=== PATIENT | male | born 1945 | race Caucasian/White ===

== ENCOUNTER → 2017-11-21 | Outpatient (CLI) | payer OTHER ==
[~2017-11-21] MED LIST: ASA81 MG PO; IOPAMIDOL 370 MG/ML 200 ML INFUS..BTL INJ ONE; SODIUM CHLORIDE 0.9% 50ML 50 ML ONE; Z.0.AMLODIPINE BESYL PO; Z.0.GABAPENTIN300 MG PO; Z.0.NORCO 5-325 TA1 PO; Z.0.PLAVIX75 MG PO
[2017-11-21 13:00] LABS: BLOOD UREA NITROGEN 16 mg/dL (7-26); BUN/CREATININE RATIO 19 (6-25); CREATININE, SERUM 0.83 mg/dL (0.72-1.25); EST GLOMERULAR FILTRATION RATE > 60 ML/MIN (60-)
--- NOTE | 2017-11-21 15:01 | Diagnostic Imaging Report ---
PROCEDURE:CTA ABD/PEL/BILATERAL LOWER EXT RUNOFF COMPARISON:None. INDICATIONS:PERIPHERAL ARTERY DISEASE TECHNIQUE: Multi-detector CT technology with Dose Reduction was employed. Images were obtained after the administration of 100 cc Isovue 370 intravenously. For optimization of anatomic evaluation, multiplanar and volume rendering reconstructions were performed. Advanced 3-D off-line postprocessing were performed on a dedicated stand-alone workstation under the direct supervision of the interpreting physician. DLP: 610.40 mGy-cm FINDINGS: The abdominal aorta is non-aneurysmal, measuring 3 cm in maximum transverse dimension at the renal segment. There is advanced calcified and noncalcified atherosclerotic plaque along the course of the abdominal aorta. At least moderate right renal artery origin stenosis is suspected. Mild celiac and SMA origin stenoses are also suspected. The DAYNA distribution fills via collateralization from the SMA branches. The red cliff bilateral common and external iliac arteries are completely occluded. Collateral perfusion of the internal iliac distributions via lumbar collaterals. Postsurgical changes of an aortobifemoral bypass graft. The right-sided iliac limb is completely occluded. The left-sided graft limb is patent, though there is a large partially thrombosed pseudoaneurysm at the distal anastomosis. Right lower extremity: Status post above knee amputation. Occluded partially visualized right common femoral-distal bypass graft. Left lower extremity: Anastomotic pseudoaneurysm of the aortobifemoral bypass graft distal anastomosis. Extensive postsurgical changes of the left inguinal region with 2 abandoned sympathetic femoral-popliteal grafts, which are completely occluded. A third femoral-popliteal graft is patent with noncalcified atherosclerotic plaque along its course. A metallic stent traverses the distal aspect of the graft, traverses the adductor hiatus, and it joins the red cliff popliteal artery at the level of the intercondylar notch of the femur. The popliteal artery is otherwise patent. Runoff: Suboptimally evaluated secondary to contrast bolus timing. The anterior tibial artery is patent proximally. None of the runoff vessels are visualized at the ankle joint or foot. Abdominal and Pelvic soft-tissues and organs: Lung bases: Subsegmental atelectasis in the dependent lower lobes. Liver: No focal hepatic lesion or intrahepatic biliary ductal dilatation. The gallbladder is normal. Biliary: No biliary dilatation. Spleen: No splenomegaly. Pancreas: No focal mass or ductal dilatation. Adrenal Glands: No nodules. Kidneys: No focal mass, hydronephrosis, or calculus. Subcentimeter hypoattenuating lesion projects from the right kidney too small to further characterize but likely represent small cysts. GI: Large bowel shows no evidence of distention or wall thickening. Gas and fecal material are noted throughout. The appendix is not identified. Prominence of the gastric rugal folds related to underdistention. No small bowel dilatation to suggest obstruction. Peritoneum/Retroperitoneum: No free air or free fluid. Reproductive organs: Bladder and prostate are unremarkable. Musculoskeletal: Muscular atrophy and osteopenia of the proximal right lower extremity. No osseous destructive lesions. Multilevel degenerative disc changes of the lumbar spine. CONCLUSION: Borderline aneurysmal abdominal aorta (3 cm) with extensive calcified and noncalcified atherosclerotic plaque resulting in at least moderate right renal ostial stenosis. Mild foci of additional visceral branch stenosis as described above. Postsurgical changes of aortobifemoral bypass graft with occlusion of the right iliofemoral limb status post right above-knee amputation. Large (6 cm) mostly thrombosed pseudoaneurysm at the distal left iliofemoral limb anastomosis. Extensive postsurgical changes of the left lower extremity including 2 abandoned femoral-popliteal bypass grafts, and a third graft and endovascular stent combination conduit, patent to its anastomosis with the popliteal artery at the level of the knee joint. Poor visualization of the runoff vessels likely secondary to contrast bolus timing and atherosclerotic disease. 2.4 cm probable postsurgical seroma along the distal aspect of the patent femoral-popliteal graft. Dictated by: Tyler Glynn M.D. on 11/21/2017 at 15:04 Electronically approved by: Tyler Glynn M.D. on 11/21/2017 at 15:04
== END ==
LOC: CT 11:35
PROVIDERS: ATTEND Thoracic Surgery (Cardiothoracic Vascular Surgery)
DX: I73.9 Peripheral vascular disease, unspecified (principal)
CPT/HCPCS: 36415; 75635; 82565; 84520; Q9967

== ENCOUNTER 2018-07-12 21:31 | Inpatient (IN) | payer MEDICARE, OTHER ==
[~2018-07-12] VITALS: Ht 170.2 cm; Wt 55.8 kg
[~2018-07-12 21:31] MED LIST changes: -IOPAMIDOL 370 MG/ML 200 ML INFUS..BTL INJ ONE; -SODIUM CHLORIDE 0.9% 50ML 50 ML ONE
--- OUTSIDE RECORDS SUMMARY | 2018-07-12 21:34 | XMS REPORT ---
Author Author [facility], [place] Address Unknown Phone Unavailable Care Team Providers Care Carrier Driver Name Role Phone DAVID DOWNING Unavailable Unavailable Problems This patient has no known problems. Allergies, Adverse Reactions, Alerts This patient has no known allergies or adverse reactions. Medications This patient has no known medications. Results Test Description Test Time Test Comments Text Results Atomic Results Result Comments CTA ABD/PEL/RUN OFF 2017-11-21 15:04:00 [place] [address] Patient Name: FREDERICK RAIN MR #: [id number] : 1945 Age/Sex: 72/M Req #: [id number] Adm Physician: Ordered by: DAVID DOWNING MD Report #: [id number] Location: CT Room/Bed: Procedure: CT/CTA ABD/PEL/RUN OFF Exam Date: 11/21/17 Exam Time: 1320 REPORT STATUS: Signed PROCEDURE: CTA ABD/PEL/BILATERAL LOWER EXT RUNOFF COMPARISON: None. INDICATIONS: PERIPHERAL ARTERY DISEASE TECHNIQUE: Multi-detector CT technology with Dose Reduction was employed. Images were obtained after the administration of 100 cc Isovue 370 intravenously. For optimization of anatomic evaluation, multiplanar and volume rendering reconstructions were performed. Advanced 3-D off-line postprocessing were performed on a dedicated stand-alone workstation under the direct supervision of the interpreting physician. DLP: 610.40 mGy-cm FINDINGS: The abdominal aorta is non- aneurysmal, measuring 3 cm in maximum transverse dimension at the renal segment. There is advanced calcified and noncalcified atherosclerotic plaque along the course of the abdominal aorta. At least moderate right renal artery origin stenosis is suspected. Mild celiac and SMA origin stenoses are also suspected. The DAYNA distribution fills via collateralization from the SMA branches. The telida bilateral common and external iliac arteries are completely occluded. Collateral perfusion of the internal iliac distributions via lumbar collaterals. Postsurgical changes of an aortobifemoral bypas s graft. The right-sided iliac limb is completely occluded. The left-sided graft limb is patent, though there is a large partially thrombosed pseudoaneurysm at the distal anastomosis. Right lower extremity: Status post above knee amputation. Occluded partially visualized right common femoral-distal bypass graft. Left lower extremity: Anastomotic pseudoaneurysm of the aortobifemoral bypass graft distal anastomosis. Extensive postsurgical changes of the left inguinal region with 2 abandoned sympathetic femoral-popliteal grafts, which are completely occluded. A third femoral-popliteal graft is patent with noncalcified atherosclerotic plaque along its course. A metallic stent traverses the distal aspect of the graft, traverses the adductor hiatus, and it joins the telida popliteal artery at the level of the intercondylar notch of the femur. The popliteal artery is otherwise patent. Runoff: Suboptimally evaluated secondary to contrast bolus timing. The anterior tibial artery is patent proximally. None of the runoff vessels are visualized at the ankle joint or foot. Abdominal and Pelvic soft-tissues and organs: Lung bases: Subsegmental atelectasis in the dependent lower lobes. Liver: No focal hepatic lesion or intrahepatic biliary ductal dilatation. The gallbladder is normal. Biliary: No biliary dilatation. Spleen: No splenomegaly. Pancreas: No focal mass or ductal dilatation. Adrenal Glands: No nodules. Kidneys: No focal mass, hydronephrosis, or calculus. Subcentimeter hypoattenuating lesion projects from the right kidney too small to further characterize but likely represent small cysts. GI: Large bowel shows no evidence of distention or wall thickening. Gas and fecal material are noted throughout. The appendix is not identified. Prominence of the gastric rugal folds related to underdistention. No small bowel dilatation to suggest obstruction. Peritoneum/Retroperitoneum: No free air or free fluid. Reproductive organs: Bladder and prostate are unremarkable. Musculoskeletal: Muscular atrophy and osteopenia of the proximal right lower extremity. No osseous destructive lesions. Multilevel degenerative disc changes of the lumbar spine. CONCLUSION: Borderline aneurysmal abdominal aorta (3 cm) with extensive calcified and noncalcified atherosclerotic plaque resulting in at least moderate right renal ostial stenosis. Mild foci of additional visceral branch stenosis as described above. Postsurgical changes of aortobifemoral bypass graft with occlusion of the right iliofemoral limb status post right above-knee amputation. Large (6 cm) mostly thrombosed pseudoaneurysm at the distal left iliofemoral limb anastomosis. Extensive postsurgical changes of the left lower extremity including 2 abandoned femoral-popliteal bypass grafts, and a third graft and endovascular stent combination conduit, patent to its anastomosis with the popliteal artery at the level of the knee joint. Poor visualization of the runoff vessels likely secondary to contrast bolus timing and atherosclerotic disease. 2.4 cm probable postsurgical seroma along the distal aspect of the patent femoral-popliteal graft. Dictated by: Marnie Coates M.D. on 11/21/2017 at 15:04 Electronically approved by: Marnie Coates M.D. on 11/21/2017 at 15:04 Dictated By: MARNIE COATES MD 1500 Transcribed By: RAMSEY on 11/21/17 1506 COPY TO: DAVID DOWNING MD
[2018-07-12 23:24] LABS: ALANINE AMINOTRANSFERASE 10 IU/L (0-55); ALBUMIN 3.7 g/dL (3.5-5.0); ALBUMIN/GLOBULIN RATIO 1.6 (0.8-2.0); ALKALINE PHOSPHATASE 75 IU/L (40-150); ANION GAP 13.1 mmol/L (8-16); BLOOD UREA NITROGEN 23 mg/dL (7-26); BUN/CREATININE RATIO 24 (6-25); CALCIUM 8.5 mg/dL (8.4-10.2); CARBON DIOXIDE 23 mmol/L (22-29); CHLORIDE 109 mmol/L (98-107); CREATININE, SERUM 0.95 mg/dL (0.72-1.25); EST GLOMERULAR FILTRATION RATE > 60 ML/MIN (60-); GLUCOSE 102 mg/dL (74-118); POTASSIUM 4.1 mmol/L (3.5-5.1); SODIUM 141 mmol/L (136-145)
[2018-07-12] MEDS ORDERED: SODIUM CHLORIDE 0.9% 50ML 50 ML ONE (23:31)
[2018-07-12] MEDS ORDERED: IOPAMIDOL 370 MG/ML 200 ML INFUS..BTL INJ ONE (23:31)
[2018-07-12 23:42] LABS: BASOPHILS # (AUTO) 0.1 (0.0-0.1); BASOPHILS % 0.8 % (0.0-1.0); EOSINOPHILS # (AUTO) 0.7 (0.0-0.4); EOSINOPHILS % 9.1 % (0.0-6.0); HEMATOCRIT 42.1 % (38.2-49.6); HEMOGLOBIN 13.9 g/dL (14.0-18.0); LYMPHOCYTES # (AUTO) 2.3 (1.0-3.2); LYMPHOCYTES % 28.8 % (18.0-39.1); MEAN CORPUSCULAR HEMOGLOBIN 31.9 pg (28-32); MEAN CORPUSCULAR VOLUME 96.6 fL (81-99); MONOCYTES % 12.4 % (4.4-11.3); NEUTROPHILS # (AUTO) 3.9 (2.1-6.9); NEUTROPHILS % 48.6 % (38.7-80.0); PLATELET COUNT 239 x10e3/uL (140-360); RED BLOOD COUNT 4.36 x10e6/uL (4.3-5.7); RED CELL DISTRIBUTION WIDTH 12.5 % (11.7-14.4)
[2018-07-13] VITALS (7 sets, daily range): BP systolic 127–162; BP diastolic 59–94
--- NOTE | 2018-07-13 00:26 | Diagnostic Imaging Report ---
History: Bleeding mass in the floor of the mouth. Comparison studies: None Technique: Axial, coronal and sagittal images from the skull base to the thoracic inlet. Coronal and sagittal images reconstructed from the axial data. Dose modulation, iterative reconstruction, and/or weight based adjustment of the mA/kV was utilized to reduce the radiation dose to as low as reasonably achievable. Intravenous contrast: 100 cc of Isovue 370. Findings: Soft tissues: Ill-defined, heterogeneous centrally hypodense and peripheral thin hyperdense lesion in posterior lateral aspect right oral tongue that approximately measures 1.2 x 0.5 0.6 cm (best seen in image 25, series 600). Mild ulceration along the right glossopharyngeal sulcus. Lymph nodes: Mildly enlarged nonnecrotic, noncalcified right level 1B lymph node measures 1.4 cm in long axis. Vessels: Atherosclerotic calcification in bilateral carotid siphon and carotid bulb. Multifocal hard atherosclerotic plaque in bilateral vertebral arteries. Arteries and veins are patent. Glands (thyroid, parotid and submandibular): Normal in size and symmetric. No masses. Orbits: No abnormalities. Paranasal sinuses: Mild mucosal thickening in right maxillary sinus. Temporal bones: No abnormalities. Skull base and facial bones: Intact. Cervical spine: C3-C4: Mild left foraminal stenosis due to uncovertebral arthrosis. C4-C5: 2 mm grade 1 anterolisthesis. Severe right foraminal stenosis due to facet and uncovertebral arthrosis. C5-C6: 2 mm grade 1 retrolisthesis. Severe degenerative disc disease. Mild left foraminal stenosis due to facet and uncovertebral arthrosis. Incidental finding: Airspace opacities in right lung apex may represent scar. IMPRESSION: 1. Ill-defined, heterogeneous predominantly hypodense soft tissue lesion in posterior and lateral aspect of right oral tongue with mild ulceration of right glossopharyngeal sulcus, raises concern for soft tissue neoplasm like squamous cell carcinoma in appropriate clinical setting. Recommendation: ENT consultation and possible tissue sampling for further assessment. 2. Mildly enlarged right level 1B lymph node is either reactive or metastatic in appropriate clinical setting. Signed by: Dr. Shanice Mackey M.D. on 07/13/2018 12:22 AM
--- NOTE | 2018-07-13 01:51 | NUR ---
PT ARRIVING TO UNIT VIA STRETCHER, NO DISTRESS NOTED, URINAL GIVEN FOR VOID, AT BEDSIDE, DENIES NEEDS, INSTRUCTED TO CALL WITH NEEDS
[2018-07-13] MEDS ORDERED: GABAPENTIN400 MG PO (02:01)
[2018-07-13] MEDS ORDERED: ATORVASTATIN CA10 MG PO (02:01)
[2018-07-13] MEDS ORDERED: LOSARTAN POTASS25 MG PO (02:01)
[2018-07-13] MEDS ORDERED: GABAPENTIN 400 MG CAP PO PRN (08:45)
[2018-07-13 09:23] LABS: INR 0.88; PROTHROMBIN TIME 12.8 seconds (11.9-14.5)
[2018-07-13 09:24] LABS: PARTIAL THROMBOPLASTIN TIME 30.3 seconds (23.8-35.5)
[2018-07-13] MEDS: AMLODIPINE BESYLATE 5 MG TAB PO SCH (10:29)
[2018-07-13] MEDS ORDERED: CLINDAMYCIN 300MG 50 ML IV SCH (12:00)
[2018-07-13] MEDS: HYDROCODONE/APAP 5MG-325MG TAB PO PRN ×2 (12:05→17:51)
--- NOTE | 2018-07-13 12:09 | NUR ---
pt dc his own iv (states he no longer want it ) iv antibiotic due at this time. attempt 2 to restart iv failed. called md quiroz to possibly change to po. md santa order
--- NOTE | 2018-07-13 12:48 | NUR ---
New IV started to the right forearm. 20G started.
[2018-07-13] MEDS: CLINDAMYCIN HCL 150 MG CAP PO SCH ×2 (17:02→23:10)
--- NOTE | 2018-07-13 19:45 | NUR ---
PT IS RESTING IN BED. NO RESPIRATORY DISTRESS NOTED. BED IN THE LOWEST POSITION, LOCKED, AND CALL LIGHT WITHIN REACH. WILL CONTINUE TO MONITOR.
[2018-07-13] MEDS ORDERED: ATORVASTATIN 10 MG TAB PO SCH (21:00)
[2018-07-14] VITALS: BP 137/63
--- NOTE | 2018-07-14 02:16 | History and Physical ---
PRIMARY CARE PHYSICIAN: Dr. Ray Mendiola. CHIEF COMPLAINT: Mouth bleed and lesion of the tongue area. HISTORY: A 73-year-old male, long-time smoker, quit approximately 6 months ago. He is using vapor. Came in with oropharyngeal bleed. The patient had a CT scan of the neck done, soft tissue of the neck, found that he has ill-defined heterogenous, predominantly hypodense soft tissue lesion in the posterior-lateral aspect of the right oral tongue with mild ulceration of the right glossopharyngeal sulcus concerning for neoplasm. The patient is otherwise stable. No chest pain. No shortness of breath. The patient is stating he was bleeding quite a bit. He is also on Plavix and aspirin for his vascular disease. The patient has history of right above-knee amputation due to his circulation problem. He was a long-time smoker. PAST MEDICAL HISTORY 1. Prostate cancer with partial prostatectomy. 2. Scalp squamous skin cancer. 3. Hypertension. 4. Peripheral vascular disease. 5. Dyslipidemia. 6. Neuropathy. PAST SURGICAL HISTORY 1. Partial prostatectomy. 2. Right above-knee amputation. SOCIAL HISTORY: Patient quit smoking approximately 6 months ago. He did not chew tobacco. No significant alcohol history. No recreational drugs. ALLERGIES: NO KNOWN ALLERGIES. HOME MEDICATIONS 1. Norvasc. 2. Aspirin. 3. Lipitor. 4. Plavix. 5. Gabapentin. 6. Bog[place]. 7. Losartan. REVIEW OF SYSTEMS: Oropharyngeal bleed. PHYSICAL EXAMINATION VITAL SIGNS: Temperature is 98, blood pressure 139/65, pulse rate 66, respirations 22. GENERAL: The patient is not in acute distress. He is awake. HEENT: Normocephalic, atraumatic. Sclerae anicteric. NECK: Supple grossly. PULMONARY: Diminished breath sounds without any wheezing. CARDIOVASCULAR: S1 and S2. Regular rate and rhythm. ABDOMEN: Soft. EXTREMITIES: Right AKA. NEUROLOGIC: No focal deficit. LABORATORY: Sodium is 141, potassium 4.1, chloride 109, bicarb 23, BUN 23, creatinine 0.9, glucose 102. WBC 7.9, hemoglobin 14, hematocrit 42, platelets is 239. Liver enzymes; AST is 18, ALT 10, total bilirubin 0.4, alkaline phosphatase 75. Coagulation is still pending. IMAGING TESTS: Soft tissue neck CT scan showed that he has ill-defined, heterogenous, predominantly hypodense soft tissue lesion in the posterior-lateral aspect of the right oral tongue with mild ulceration of the right glossopharyngeal sulcus, raises concern for soft tissue neoplasm like squamous cell carcinoma in appropriate clinical setting. Recommendation; ENT consultation and possible tissue sampling for further assessment. Mildly enlarged right level 1B lymph node is either reactive or metastatic in appropriate clinical setting. The x-ray was read by Shanice Mackey MD. ASSESSMENT 1. Ill-defined soft tissue lesion in the posterior-lateral aspect of the right oral tongue with ulceration. 2. History of long-time smoker. 3. Peripheral vascular disease with history of right mivyy-eip-lory amputation, currently on Plavix and aspirin which is now stopped. PLAN: 1. Consultation with Dr. Rafael Hawley, ENT. 2. Malignancy workup including CT of the chest, abdomen, and pelvis. 3. Resume home medications except for aspirin and Plavix. 4. Coagulation tests, PT and PTT. 5. Home medications with some adjustment if needed. 6. We will repeat lab work in the morning including CBC and BMP. Job#: [id number] ANSON cc:DR. RAY MENDIOLA
--- NOTE | 2018-07-14 02:25 | Consultation ---
DATE OF CONSULTATION: July 13, 2018 HISTORY OF PRESENT ILLNESS: I was kindly asked to see this 73-year-old man for evaluation of bleeding from his oral cavity. The patient has no previous history of bleeding and no known oral cavity abnormalities until the evening of his presentation where he developed profuse bleeding from his oral cavity, which he describes as being "a pint". PAST MEDICAL HISTORY: Reviewed in detail on the chart. PAST SURGICAL HISTORY: Reviewed in detail on the chart. SOCIAL HISTORY: He also has a history of smoking. PHYSICAL EXAMINATION On examination, the tympanic membranes and external auditory canals are unremarkable. He has a mild nasal septal deviation to the right. Oral cavity examination is pertinent for floor of mouth bere, but no lesions were identified. Posterior pharyngeal wall was unremarkable. The tongue had no visible lesions. There was no blood noted on fiberoptic laryngoscopy. He had normal vocal cord motion. There were no masses. He had moderate candidiasis at the base of the tongue, but lesion identified on CT scan was not appreciated on exam. Glove finger palpation of the tongue and base of the tongue was also normal. He had no palpable cervical adenopathy. CT scan of the neck on admission showed an ill-defined heterogeneous hyperdense soft tissue lesion in the posterior lateral aspect of the right oral tongue with mild ulceration of the right glossopharyngeal sulcus and also mildly enlarged level 1B lymph node. ASSESSMENT 1. Hemoptysis. 2. 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 3. Cervical adenopathy. PLAN 1. Continued observation for bleeding. 2. Workup per Dr. Reilly. 3. Patient will need direct laryngoscopy with possible biopsy which can be done as an outpatient if he remains clinically stable or done during this hospitalization based on clinical course. Thank you very much. Job#: [id number] MARIAH
[2018-07-14 04:00] VITALS: BP 127/72
[2018-07-14] MEDS: CLINDAMYCIN HCL 150 MG CAP PO SCH (05:06)
[2018-07-14] MEDS ORDERED: IOPAMIDOL 370 MG/ML 200 ML INFUS..BTL INJ ONE (05:16)
[2018-07-14] MEDS ORDERED: SODIUM CHLORIDE 0.9% 50ML 50 ML ONE (05:16)
--- NOTE | 2018-07-14 06:28 | Diagnostic Imaging Report ---
EXAM: CT Chest, Abdomen and Pelvis WITH contrast INDICATION: MALIGNANCY WORK UP COMPARISON: None. TECHNIQUE: Chest, abdomen and pelvis were scanned utilizing a multidetector helical scanner from the lung apex to the pubic symphysis after administration of IV contrast. Coronal and sagittal reformations were obtained. Routine protocol was performed. Scan was performed when during portal venous phase. IV CONTRAST: 100 mL of Isovue-370 ORAL CONTRAST: Water COMPLICATIONS: None RADIATION DOSE: Total DLP: 493.22 mGy*cm Estimated effective dose: (DLP x 0.015 x size factor) mSv Dose modulation, iterative reconstruction, and/or weight based adjustment of the mA/kV was utilized to reduce the radiation dose to as low as reasonably achievable. FINDINGS: LINES and TUBES: None. LUNGS AND AIRWAYS: Mild centrilobular emphysematous changes. Right lower lobe 0.4 cm subpleural nodules (series 305 image 56 and 95). Posterior right tracheal 1 cm rounded density (series 305 image 30), likely debris/secretions given that finding is new compared to recent neck CT 07/12/2018. PLEURA: The pleural spaces are clear. HEART AND MEDIASTINUM: The thyroid gland is normal. Bilateral axillary lymphadenopathy, for example measuring 1.8 cm in the right axilla (image 37) and 1.7 cm in the left axilla (image 51). No mediastinal or hilar lymphadenopathy. Upper right paratracheal 0.8 cm node (image 26). The heart is normal in size.. There is no pericardial effusion. Aortic valvular and coronary calcifications. Scattered atherosclerotic calcifications. Stenosis of the origin of the left common carotid artery. HEPATOBILIARY: No focal hepatic lesions. No biliary ductal dilation. GALLBLADDER: No radio-opaque stones or sludge. No wall thickening. SPLEEN: No splenomegaly. Calcified granulomas. PANCREAS: No focal masses or ductal dilatation. ADRENALS: No adrenal nodules KIDNEYS/URETERS: Kidneys enhance symmetrically. No hydronephrosis. No cystic or solid mass lesions. No stones. GI TRACT: Small hiatal hernia. Bowel containing right inguinal hernia without evidence of obstruction or strangulation. No abnormal distention, wall thickening, or evidence of bowel obstruction. PELVIC ORGANS/BLADDER: Hyperattenuating fluid within the bladder may represent diluted excreted contrast from CT scan 07/12/2018. LYMPH NODES: No lymphadenopathy. VESSELS: Severe atherosclerotic calcifications. Juxtarenal abdominal aortic aneurysm measuring 3.3 cm (series 2 image 70). Aortofemoral bypass graft with aneurysm at the anastomosis on the left femoral artery measuring 3.7 cm (series 2 image 118). Complete occlusion of the distal aorta and common/external iliac arteries. No apparent bypass is seen extending to the right lower extremity within the visualized portions of the scan. PERITONEUM / RETROPERITONEUM: No free air or fluid. BONES: Osseous demineralization of the right femur, likely disuse demineralization. SOFT TISSUES: Atrophy of the right gluteal and lower extremity musculature. Mild right gluteal skin thickening, incompletely visualized. IMPRESSION: 1. No specific evidence of metastatic disease in the chest, abdomen, or pelvis. 2. Bilateral axillary lymphadenopathy, nonspecific although not expected for metastatic oropharyngeal malignancy. 3. Mild emphysema. 4. Rounded 1 cm density in the trachea likely representing aspirated secretions/debris. 5. Severe atherosclerotic disease with aortobifemoral bypass. 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 6. Findings suggestive of disuse of the right lower extremity. Right gluteal skin thickening may represent early stage decubitus ulcer. Clinical correlation recommended. Signed by: DR. Mat Klein MD on 07/14/2018 6:25 AM
[2018-07-14 06:37] LABS: BASOPHILS # (AUTO) 0.1 (0.0-0.1); EOSINOPHILS # (AUTO) 0.6 (0.0-0.4); EOSINOPHILS % 8.2 % (0.0-6.0); HEMATOCRIT 35.9 % (38.2-49.6); HEMOGLOBIN 13.5 g/dL (14.0-18.0); LYMPHOCYTES % 26.5 % (18.0-39.1); MEAN CORPUSCULAR HEMOGLOBIN 35.2 pg (28-32); MEAN CORPUSCULAR HGB CONC 37.6 g/dL (31-35); MEAN CORPUSCULAR VOLUME 93.5 fL (81-99); MONOCYTES % 13.9 % (4.4-11.3); NEUTROPHILS # (AUTO) 3.7 (2.1-6.9); NEUTROPHILS % 50.1 % (38.7-80.0); PLATELET COUNT 201 x10e3/uL (140-360); RED BLOOD COUNT 3.84 x10e6/uL (4.3-5.7); RED CELL DISTRIBUTION WIDTH 12.7 % (11.7-14.4)
[2018-07-14 06:58] LABS: ALANINE AMINOTRANSFERASE 8 IU/L (0-55); ALBUMIN 3.5 g/dL (3.5-5.0); ALBUMIN/GLOBULIN RATIO 1.7 (0.8-2.0); ALKALINE PHOSPHATASE 72 IU/L (40-150); ANION GAP 14.2 mmol/L (8-16); BLOOD UREA NITROGEN 17 mg/dL (7-26); BUN/CREATININE RATIO 18 (6-25); CALCIUM 8.4 mg/dL (8.4-10.2); CARBON DIOXIDE 21 mmol/L (22-29); CHLORIDE 106 mmol/L (98-107); CREATININE, SERUM 0.96 mg/dL (0.72-1.25); EST GLOMERULAR FILTRATION RATE > 60 ML/MIN (60-); GLUCOSE 98 mg/dL (74-118); POTASSIUM 4.2 mmol/L (3.5-5.1); SODIUM 137 mmol/L (136-145)
--- NOTE | 2018-07-14 07:25 | NUR ---
patient resting in bed, Alert with no distress, call light in reach, keep asking about when he gonna discharge today, assured him that Dr Reilly will make rounds and will say discharge plan
[2018-07-14 07:49] VITALS: BP 154/71
[2018-07-14] MEDS: AMLODIPINE BESYLATE 5 MG TAB PO SCH (08:32)
[2018-07-14 08:52] VITALS: BP 154/71
[2018-07-14] MEDS ORDERED: CLINDAMYCIN HC300 MG PO (08:56)
--- NOTE | 2018-07-14 10:24 | NUR ---
patient discharged home, prescription given , patient aware about f/up appointments, IV canula removed with tip intact, no ss of infiltration noted. family here to take patient home. transported via to [facility]
--- NOTE | 2018-07-14 14:41 | Discharge Summary ---
PCP: Dr. Ray Herman CONSULTANTS: Dr. Rafael Hawley Patient in observation. Discharged from observation. FINAL DIAGNOSES 1. Oral bleed, has stopped. 2. Soft tissue neck computerized tomography examination showed ill-defined heterogenous soft tissue lesion in the posterolateral aspect of the right oral tongue with mild ulceration of the right glossopharyngeal sulcus. Was not seen on examination by Dr. Rafael Hawley, ENT. SUMMARY: A 73-year-old male discharged home today. The patient has no further bleed since he was on observation in the hospitalization. CT of the chest, abdomen and pelvis, there is no sign of malignancy noticed. No lung mass or abdominal mass. There is lymphadenopathy, but no sign of malignancy. The patient was seen by Dr. Rafael Hawley. Direct examination showed no lesions. The patient is otherwise stable. Recommend the patient to follow up with Dr. Rafael Hawley in his office. The patient is otherwise stable at this time. Will advise the patient to hold off aspirin and Plavix for 1 week and follow with Dr. Hawley. Clindamycin 300 mg a day for 5 days. The patient is stable. He will resume his other home medications. Will follow up Dr. Ray Polo in approximately 1 week as well. Job#: [id number] LEO
== END 2018-07-14 10:24 | disposition home or self-care (01) | DRG 159 ==
LOC: ER 21:31 → ERHOLD 07-13 01:21 → MED/SURG 07-13 01:52 → OBSVTOIN 07-13 08:40
PROVIDERS: ADMIT Internal Medicine; ATTEND Internal Medicine
PROC: 0CJS8ZZ Inspection of Larynx, Via Natural or Artificial Opening Endoscopic (ICD-10-PCS; principal; 2018-07-13)
DX: K14.0 Glossitis (principal); K13.79 Other lesions of oral mucosa; R59.1 Generalized enlarged lymph nodes; F17.290 Nicotine dependence, other tobacco product, uncomplicated; I10 Essential (primary) hypertension; I73.9 Peripheral vascular disease, unspecified; E78.5 Hyperlipidemia, unspecified; G62.9 Polyneuropathy, unspecified; Z85.46 Personal history of malignant neoplasm of prostate; Z79.02 Long term (current) use of antithrombotics/antiplatelets; Z79.82 Long term (current) use of aspirin
CPT/HCPCS: 36415; 70491; 71260; 74177; 80053; 85025; 85610; 85730; 99284; Q9967

== ENCOUNTER 2019-01-07 15:46 | Inpatient (IN) | payer MEDICARE, OTHER ==
[~2019-01-07] VITALS: Ht 170.2 cm; Wt 67.1 kg
[~2019-01-07 15:46] MED LIST changes: +ATORVASTATIN CA10 MG PO; +CLINDAMYCIN HC300 MG PO; +GABAPENTIN400 MG PO; +LOSARTAN POTASS25 MG PO
[2019-01-07 17:08] LABS: BASOPHILS % 0.2 % (0.0-1.0); EOSINOPHILS # (AUTO) 0.2 (0.0-0.4); EOSINOPHILS % 1.7 % (0.0-6.0); HEMATOCRIT 39.8 % (38.2-49.6); LYMPHOCYTES # (AUTO) 1.9 (1.0-3.2); LYMPHOCYTES % 13.9 % (18.0-39.1); MEAN CORPUSCULAR HEMOGLOBIN 31.6 pg (28-32); MEAN CORPUSCULAR HGB CONC 32.7 g/dL (31-35); MEAN CORPUSCULAR VOLUME 96.6 fL (81-99); MONOCYTES # (AUTO) 1.4 (0.2-0.8); MONOCYTES % 10.3 % (4.4-11.3); NEUTROPHILS # (AUTO) 10.2 (2.1-6.9); NEUTROPHILS % 73.5 % (38.7-80.0); PLATELET COUNT 201 x10e3/uL (140-360); RED BLOOD COUNT 4.12 x10e6/uL (4.3-5.7); RED CELL DISTRIBUTION WIDTH 13.2 % (11.7-14.4)
--- NOTE | 2019-01-07 17:17 | Diagnostic Imaging Report ---
EXAMINATION: CHEST SINGLE (PORTABLE) INDICATION: Trauma, Altered mental status COMPARISON: Chest CT of 07/06/2018 FINDINGS: TUBES and LINES: EKG leads overlie the chest. LUNGS: The lungs are moderately inflated. Patchy opacity at the right middle lobe partially silhouettes the right heart border. PLEURA: No pleural effusion or pneumothorax. HEART AND MEDIASTINUM: The cardiomediastinal silhouette is normal in size and contour. BONES AND SOFT TISSUES: No acute fracture or dislocation. UPPER ABDOMEN: No free air under the diaphragm. IMPRESSION: Patchy right middle lobe opacity may represent subsegmental atelectasis however superimposed aspiration or early pneumonia could also have this appearance. Signed by: Jaspreet Wynn MD on 01/07/2019 5:14 PM
[2019-01-07 17:23] LABS: INR 0.87; PROTHROMBIN TIME 12.3 seconds (11.9-14.5)
[2019-01-07 17:24] LABS: PARTIAL THROMBOPLASTIN TIME 28.9 seconds (23.8-35.5)
[2019-01-07 17:31] LABS: ALBUMIN 3.5 g/dL (3.5-5.0); ANION GAP 12.8 mmol/L (8-16); CALCIUM 8.9 mg/dL (8.4-10.2); CREATININE, SERUM 1.91 mg/dL (0.72-1.25); MAGNESIUM 2.4 MG/DL (1.3-2.1); POTASSIUM 4.8 mmol/L (3.5-5.1)
[2019-01-07 18:06] LABS: BILIRUBIN,URINE NEGATIVE (NEGATIVE); CLARITY,URINE SL CLOUDY (CLEAR); COLOR,URINE YELLOW (YELLOW); KETONES,URINE NEGATIVE (NEGATIVE); LEUKOCYTE ESTERASE ,URINE NEGATIVE (NEGATIVE); NITRITE,URINE NEGATIVE (NEGATIVE); PROTEIN,URINE DIPSTICK TRACE (NEGATIVE); URINE UROBILINOGEN 1 mg/dL (0.2 - 1)
[2019-01-07 18:15] LABS: BACTERIA,URINE FEW /HPF; RBC,URINE 0-5 /HPF (0-5)
[2019-01-07 18:16] LABS: AMORPHOUS SEDIMENT,URINE FEW (FEW); EPITHELIAL CELLS,URINE RARE /LPF
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
--- NOTE | 2019-01-07 19:12 | Diagnostic Imaging Report ---
Exams: Head and cervical spine CTs without IV contrast History: Trauma, fall, leg weakness Comparison studies: Included cervical spine from soft tissue neck CT 07/12/2018. Technique: Axial images were obtained from the brain and cervical spine. Coronal and sagittal images reconstructed from the axial data. Dose modulation, iterative reconstruction, and/or weight based adjustment of the mA/kV was utilized to reduce the radiation dose to as low as reasonably achievable. Intravenous contrast: None Findings: Head CT: Scalp: No abnormalities. Bones: No fractures, blastic or lytic lesions. Extra-axial spaces: No masses. No fluid collections. Brain sulci: Mildly prom and. Ventricles: Mild compensatory dilatation. No hydrocephalus. Parenchyma: No mass, acute hemorrhage or acute. Multiple chronic lacunar infarcts include: Bilateral striatocapsular region, near the genu is of the internal capsules, left globus pallidus, bilateral putamina, left frontal periventricular and right thalamus. A few scattered hypodensities in the supratentorial white matter are nonspecific but are most compatible with chronic microvascular ischemic changes. Sellar/suprasellar region: No abnormalities. Craniocervical junction: The foramen magnum is patent. No Chiari one malformation. Cervical spine CT: Fractures: None. Soft tissues: No gross acute abnormalities. Atlantoaxial articulation: Intact. Alignment: Straightened cervical curvature, convex left cervical curvature and mild anterolisthesis of C4 on C5 and retrolisthesis of C5 on C6 are likewise are unchanged from the prior neck CT. Cervicomedullary junction: No abnormalities. The foramen magnum is patent. Vertebrae: No infection or neoplasm. Degenerative changes: Moderately degenerated C5-C6 disc. Mild degenerated C4-C5 discs. Mild canal stenosis at C4-C5 and C5-C6 due to listhesis and disc osteophyte complex at C5-C6. Multilevel facet arthrosis. Uncovertebral and facet arthrosis result in mild foraminal stenosis on the right at C3-C4 and moderate left and mild right foraminal stenosis at C5-C6. Incidental findings: Small right max or sinus retention cyst or Chronic inflammatory changes at the left mastoid tip. Scattered calcified atherosclerosis with calcified plaque in the great vessels, carotid bulbs, carotid siphons and vertebral arteries.. IMPRESSION: Head CT: 1. No acute abnormalities. 2. Mild generalized parenchymal volume loss. 3. Mild microvascular ischemic changes with multiple chronic lacunar infarcts as described. Cervical spine CT: 1. No cervical spine fracture or acute subluxation. 2. Multilevel degenerative changes as described. 3. Cannot exclude ligament, spinal cord and or vascular abnormalities on the basis of this examination. Signed by: Dr. Tyler Churchill M.D. on 01/07/2019 7:09 PM
[2019-01-07] MEDS ORDERED: SODIUM CHLORIDE 0.9% 1000ML 1,000 ML IV ONE (19:30)
--- NOTE | 2019-01-07 19:40 | NUR ---
PT REFUSING CARE AT THIS TIME, PULLED OUT IV, INFORMED DR. RUDD, RECEIVED ORDERS TO MEDICATE PT WITH IM INJECTIONS.
[2019-01-07] MEDS ORDERED: ZIPRASIDONE 20 MG VIAL IM STA (19:42)
[2019-01-07] MEDS ORDERED: LORAZEPAM INJ 2 MG/ML VIAL IM ONE (19:42)
[2019-01-07 19:50] LABS: CREATINE KINASE MB 2.3 ng/mL (0-5.0)
[2019-01-07] MEDS: CEFTRIAXONE SOD 1 GM/NS 50 ML 50 ML IV SCH (20:32)
[2019-01-07] MEDS: AZITHROMYCIN 500MG/NS 250 ML 250 ML IV SCH (21:30)
[2019-01-07 21:32] VITALS: BP 123/53
[2019-01-07 21:35] VITALS: BP 123/53
--- NOTE | 2019-01-07 21:57 | NUR ---
Report received from ISAIAH Cook. Patient admitted in unit @2113 by stretcher. Patient received sleeping @ this time.Head to toe assessment completed. No skin breakdown noted. Redness on scarum area noted and had right AKA. Patient assisted to connected 2liters oxygen via nasal canula,Spo2 maintained 95%. No SOB noted. Respiration even and unlabored. Bed in lower position and locked. Bed alarm on. Call oglesby within reach. Will continue to monitor.
[2019-01-07 22:03] VITALS: BP 141/66
[2019-01-07 23:33] VITALS: BP 156/90
[2019-01-08] VITALS (7 sets, daily range): BP systolic 111–147; BP diastolic 48–90
--- NOTE | 2019-01-08 04:01 | NUR ---
Patient was so confused,agitated and trying to get out from bed and pull out all chest leads. Called to notified about patient condition, ordered IM Geodon 0.5mg q6h PRN. Will continue to monitor.
[2019-01-08] MEDS: ZIPRASIDONE 20 MG VIAL IM PRN ×3 (04:57→19:05)
[2019-01-08 05:40] LABS: BASOPHILS % 0.3 % (0.0-1.0); EOSINOPHILS # (AUTO) 0.2 (0.0-0.4); EOSINOPHILS % 2.6 % (0.0-6.0); HEMATOCRIT 36.6 % (38.2-49.6); HEMOGLOBIN 11.6 g/dL (14.0-18.0); LYMPHOCYTES # (AUTO) 1.9 (1.0-3.2); MEAN CORPUSCULAR HEMOGLOBIN 30.5 pg (28-32); MEAN CORPUSCULAR HGB CONC 31.7 g/dL (31-35); MEAN CORPUSCULAR VOLUME 96.3 fL (81-99); MONOCYTES # (AUTO) 1.2 (0.2-0.8); MONOCYTES % 13.8 % (4.4-11.3); NEUTROPHILS # (AUTO) 5.4 (2.1-6.9); PLATELET COUNT 193 x10e3/uL (140-360); RED CELL DISTRIBUTION WIDTH 13.3 % (11.7-14.4)
--- NOTE | 2019-01-08 06:08 | NUR ---
Patient assisted to clean and changed diaper/pads and gown with help of ISAIAH Lewis. Patient tolerated well. Will continue to monitor.
[2019-01-08 06:10] LABS: CREATINE KINASE MB 2.5 ng/mL (0-5.0)
[2019-01-08 06:36] LABS: ALBUMIN 2.9 g/dL (3.5-5.0); ALBUMIN/GLOBULIN RATIO 0.9 (0.8-2.0); ANION GAP 12.2 mmol/L (8-16); CALCIUM 8.3 mg/dL (8.4-10.2); CREATININE, SERUM 1.52 mg/dL (0.72-1.25); POTASSIUM 4.2 mmol/L (3.5-5.1)
--- NOTE | 2019-01-08 06:54 | NUR ---
Report given to oncoming ISAIAH Dalton. NO issued noted.
--- NOTE | 2019-01-08 06:55 | NUR ---
Pt received resting in bed. Call oglesby within reach. Bed alarm on. Will monitor
--- NOTE | 2019-01-08 07:15 | Diagnostic Imaging Report ---
Examination: Single AP view of the chest. COMPARISON: 01/07/2019 INDICATION: Pneumonia DISCUSSION: The lungs remain well-inflated. Unchanged patchy right middle lobe opacity with partial loss of the right heart border. No new consolidation. Stable cardiomediastinal contour with tortuosity and atherosclerotic calcification of the thoracic aorta. Densities projecting over the left lung apex likely represent vascular calcifications or sequela of prior pulmonary infection. No acute osseous abnormality. IMPRESSION: Unchanged right middle lobe airspace disease which may reflect atelectasis, aspiration, or pneumonia as previously discussed. Signed by: Dr. Tyler Glynn M.D. on 01/08/2019 7:12 AM
[2019-01-08] MEDS: CEFTRIAXONE SOD 1 GM/NS 50 ML 50 ML IV SCH ×2 (07:55→19:17)
[2019-01-08] MEDS: AZITHROMYCIN 500MG/NS 250 ML 250 ML IV SCH (08:51)
[2019-01-08] MEDS ORDERED: GABAPENTIN 400 MG CAP PO SCH (09:00)
--- NOTE | 2019-01-08 09:05 | NUR ---
Pt left for CT scan
--- NOTE | 2019-01-08 09:15 | NUR ---
Spoke to Dr. Reilly who wanted more information regarding pt' s home activities. Spoke to pt who stated that his Paola takes care of him. Called the contact in the computer Sole Pedroza () who stated that ex- who lives in [place]. Sole also stated that pt has a lot of "drug paraphernalia and he smokes an electric cigarette". Sole stated that she's recovering from cancer, and she has vision issues, and "he is too much for me to handle". Spoke to about placing pt in [facility], and she agreed. Called Dr. Reilly, and replayed 's concerns. Urine drug screen ordered, and case management order placed for placement. Will monitor
--- NOTE | 2019-01-08 09:18 | NUR ---
Pt returned from CT scan
[2019-01-08 09:28] LABS: AMPHETAMINES SCREEN,URINE NEGATIVE (NEGATIVE); BENZODIAZEPINES SCREEN,URINE NEGATIVE (NEGATIVE); PHENCYCLIDINE SCREEN,URINE NEGATIVE (NEGATIVE)
--- NOTE | 2019-01-08 10:25 | Diagnostic Imaging Report ---
CT of the chest, without contrast, 01/08/2019. History: Pneumonia, shortness of breath. Comparison: Chest x-ray 01/07/2019. CT chest 07/06/2018. Technique: Multidetector CT scanning of the chest was performed from the level of the apices to the upper abdomen without contrast. Coronal and sagittal multiplanar reformations were obtained. RADIATION DOSE: Total DLP: 517 mGy*cm Dose modulation, iterative reconstruction, and/or weight based adjustment of the mA/kV was utilized to reduce the radiation dose to as low as reasonably achievable. Discussion: Evaluation is limited without IV contrast. Chest: The heart, aorta, and pulmonary vessels are normal in size. There is calcification of the thoracic aorta and coronary arteries. Prominent axillary lymph nodes are present bilaterally measuring up to 1.7 cm on the right and 1.6 cm on the left. There is no mediastinal adenopathy. There is mild bilateral paraseptal emphysema. Debris is present in the proximal right mainstem bronchus and the distal right lower lobe bronchus. There is right lower lobe posterior consolidation without pleural effusion. Subsegmental atelectasis is present in the left lower lobe. Limited evaluation of the upper abdomen shows normal adrenal glands. Multiple calcified granulomata are present within the spleen. Small stones are noted within the gallbladder. Bones and soft tissues: No acute abnormality. IMPRESSION: 1. Right lower lobe pneumonia with right lower lobe bronchus mucous plugging. 2. Stable bilateral axillary lymphadenopathy. Signed by: Cali Hurtado on 01/08/2019 10:22 AM
--- NOTE | 2019-01-08 11:15 | NUR ---
Pt noted with abrasion to left elbow, and stage II to sacrum. Forehead wounds covered with band-aids. Will monitor
[2019-01-08] MEDS: GABAPENTIN 100 MG CAP PO SCH ×3 (12:00→21:27)
[2019-01-08] MEDS: LOSARTAN POTASSIUM 25 MG TAB PO SCH (12:00)
[2019-01-08] MEDS: AMLODIPINE BESYLATE 5 MG TAB PO SCH (12:00)
[2019-01-08] MEDS ORDERED: PLAVIX75 MG PO (12:09)
[2019-01-08] MEDS ORDERED: GABAPENTIN300 MG PO (12:09)
[2019-01-08] MEDS ORDERED: BENICAR20 MG PO (12:09)
--- NOTE | 2019-01-08 13:42 | NUR ---
SPOKE WITH PT AND ABOUT SNF ORDER, WAS ABLE TO GET CHOICE FORM SIGNED FOR [facility] [place], FILED IN CHART, WAITING ON NOTES IN ORDER TO SUBMIT FOR REFERRAL, TRANSCRIBED NOTES NOT IN SYSTEM YET NOR ARE PT. WILL FAX SOON I GET.
--- NOTE | 2019-01-08 14:29 | NUR ---
Nutrition Screen Note RD Recommendation for Physician: -Continue diet as ordered Plan of Care: RD following, monitoring for tolerance and adequacy Nutrition reason for involvement: Nutrition Risk Trigger MST Primary Diagnose(s): AMS, PNA PMH: 1. Prostate cancer with partial prostatectomy. 2. Scalp squamous skin cancer. 3. Hypertension. 4. Peripheral vascular disease. 5. Dyslipidemia. 6. Neuropathy. 7. Right AKA Ht: 67in Wt: 123lb BMI: N/A IBW: 124lb (adjusted with R AKA) RD Assessment: (01/08) Chart reviewed. Labs and meds reviewed. 73yo M, who was admitted s/p fall. Visited pt in the room. Poor historian. Per , pt has been eating/ drinking well at home without any GI issue. No complains of nausea or vomiting. LBM 01/08. No chewing or swallowing difficulty noted. Weight has been stable at 120lb. Will continue to monitor and follow. Current Diet: cardiac diet Malnutrition Evaluation (01/08) The patient does not meet criteria for a specified degree of malnutrition at this time. Will re-evaluate at follow-up as appropriate. Diet Education Needs Assessment: Diet education not indicated. Nutrition Care Level: low Signed: Angela Figueroa, MS, RD, LD
--- NOTE | 2019-01-08 14:43 | History and Physical ---
PRIMARY CARE PHYSICIAN: Dr. Ray Herman. CHIEF COMPLAINT: Altered mental status, recurrent fall and pneumonia. HISTORY OF PRESENT ILLNESS: The patient is a [id number], very confused, very agitated during the night. In the emergency room, the patient did receive Ativan and Geodon. Geodon needed overnight due to the patient trying to get out of bed, very confused. He does have right AKA. The patient is otherwise stable now, eating breakfast. He is answering some questions, but remain unreliable. The patient stated he lives with his . over the past 7 to 10 days per note here in the emergency room, the patient was more confused. The patient is usually alert and awake x3 per spouse and per records. He uses a walker. PAST MEDICAL HISTORY: 1. Right AKA. 2. Hypertension. 3. History of CVA. 4. Chronic pain. 5. He had prostate cancer with partial prostatectomy. 6. Scalp squamous skin cancer. 7. Peripheral vascular disease. 8. Dyslipidemia. 9. Peripheral neuropathy. PAST SURGICAL HISTORY: He had a partial prostatectomy, right above knee amputation. SOCIAL HISTORY: The patient lives with his spouse. He does not smoke or use alcohol. No regular drug. ALLERGIES: NO KNOWN ALLERGIES. HOME MEDICATIONS: List reviewed. PHYSICAL EXAMINATION: VITAL SIGNS: Temperature is 98, blood pressure 147/67, pulse rate is 60, respirations 18. GENERAL: The patient is awake. He is comfortable, not in any agitation at this time. HEENT: Scalp lesion, Band-Aid in place. There was no other laceration. NECK: Supple. PULMONARY: Diminished breath sounds bilaterally. CARDIOVASCULAR: Regular rate and rhythm. ABDOMEN: Soft. EXTREMITIES: Right AKA. NEUROLOGIC: Confusion, but moving all extremities. LABORATORY DATA: WBC is 14, hemoglobin 13, hematocrit 39.8, platelets is 201. Chemistry; sodium is 139, potassium 4.8, chloride 106, bicarb 25, BUN is 36, creatinine 1.9, glucose is 104. IMAGING TESTS: The chest x-ray showed unchanged right middle lobe airspace disease. CT scan of the brain and cervical spine, otherwise unremarkable. No acute finding. No thyroid level. Degenerated C-spine disease. IMPRESSION: 1. Right middle lobe pneumonia. 2. Altered mental status could be secondary to the infection versus progressive dementia. PLAN: CT of the chest. Antibiotics. PT/OT. Home medication. We will discuss with spouse when she comes to visit the patient. MD LALITHA Villanueva/ROSE /[id number]
[2019-01-08 15:02] LABS: CREATINE KINASE MB 2.6 ng/mL (0-5.0)
--- NOTE | 2019-01-08 15:15 | NUR ---
Pt had 3 loose bowel movements. Pt is confused, and attempting to get out of bed. Geodon given. Bed alarm on. Will monitor
--- NOTE | 2019-01-08 15:50 | NUR ---
Pt had 4 loose bowel movements. Stool for C. diff sent. Will monitor
--- NOTE | 2019-01-08 16:06 | NUR ---
WOUND CARE CONSULTATION: THIS IS A 73 YEAR OLD MALE PATIENT ADMITTED TO [facility] FOR ALTERED MENTAL STATUS AND PNEUMONIA. HEAD TO TOE SKIN ASSESSMENT PERFORMED. PATIENT HAS A LEFT ELBOW HEALING ABRASION MEASURING 2X2.5CM, 100% STABLE ESCHAR. PATIENT HAS A SMALL SUPERFICIAL AREA ON HIS LEFT FOREHEAD FROM HIS CARPET REPAIRER REMOVING TWO SUSPICIOUS MOLES; 10% PINK GRANULATION NOTED, MINIMAL SEROUS DRAINAGE NOTED, 90% STABLE HEALING ESCHARS MEASURING 0.8X0.5X0.1CM. PATIENT STATED "WE WERE TOLD TO KEEP THE AREAS CLEAN AND DRY BY THE CARPET REPAIRER". PATIENT HAS A STAGE 1 PRESSURE ULCER NOTED TO THE COCCYX MEASURING 1.3X1CM, 100% NONBLANCHABLE REDNESS NOTED. PATIENT HAS A STAGE 2 PRESSURE ULCER TO THE LEFT BUTTOCKS MEASURING 0.5X1X0.1CM, 100% PINK GRANULATION NOTED. PATIENT HAS AN AREA OF 100% BLANCHABLE REDNESS NOTED TO THE RIGHT BUTTOCKS MEASURING 3.5X2CM, SKIN INTACT. PATIENT AND STATED THAT PATIENT HAS HAD BUTTOCKS ULCERS AND REDNESS FOR APPROXIMATELTY OVER A WEEK. LABS: WBC8.22 ALB2.9 BLOOD CULTURE = PENDING MEDICATIONS: CEFTRIAXONE AZITHROMYCIN RECOMMENDATION: -CONTINUE ALTERNATING PRESSURE RELIEF MATTRESS. -APPLY LEFT FOOT HEEL PROTECTOR WITH PILLOW SUSPENSION. -TURN EVERY 2 HOURS AND PRN. -NURSING TO CLEAN FOREHEAD WOUND WITH NORMAL SALINE, PAT DRY, APPLY MAXORB AG, 4X4 GAUZE AND SECURE WITH TAPE; CHANGE DAILY AND PRN. -NURSING TO CLEAN LEFT ELBOW ABRASION WITH NORMAL SALINE, PAT DRY, APPLY BETADINE AND LEAVE OPEN TO AIR; CHANGE DAILY AND PRN. -NURSING TO CLEAN COCCYX STAGE 1 PRESSURE ULCER, LEFT BUTTOCKS STAGE 2 PRESSURE ULCER AND RIGHT BUTTOCKS AREA OF REDNESS WITH NORMAL SALINE, PAT DRY, APPLY VENELEX AND THEN ALLEVYN FOAM DRESSINGS; CHANGE BID AND PRN. THANK YOU FOR THIS WOUND CARE CONSULT. Addendum: 01/08/19 at 1634 by Estefania Vargas RN Amended: Links added.
--- NOTE | 2019-01-08 17:23 | NUR ---
Pt constantly pulling lines, and attempting to get out of bed. Dr. Reilly notified. Seroquel 25mg po q6hrs ordered. Will monitor
[2019-01-08] MEDS: QUETIAPINE FUMARATE 25 MG TAB PO SCH ×2 (18:18→21:27)
--- NOTE | 2019-01-08 18:45 | NUR ---
Report received. Assumed care. Assessment done. See interventions.
--- NOTE | 2019-01-08 18:58 | NUR ---
Pt resting in bed. Handoff given to oncoming nurse
--- NOTE | 2019-01-08 19:05 | NUR ---
Pulling all monitoring wires off. Combative. Swinging at nurse. Bernice GARCIA given to left thigh.
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
[2019-01-08] MEDS ORDERED: BALSAM PERU/CASTOR OIL 60 GM OINT...G. TP SCH (21:00)
--- NOTE | 2019-01-08 21:26 | NUR ---
Cont combative with threatening nurses. Call to Dr. Reilly. Orders given. Serequel dose given early and extra dose of geodon IM given.
[2019-01-08] MEDS: BALSAM PERU/CASTOR OIL 60 GM OINT...G. TP SCH (21:27)
[2019-01-08] MEDS: ATORVASTATIN 10 MG TAB PO SCH (21:27)
[2019-01-09] VITALS (8 sets, daily range): BP systolic 123–166; BP diastolic 56–90
--- NOTE | 2019-01-09 | NUR ---
Still fighting with staff. Pulling all monitoring wires off. Refuses to have BP taken.
--- NOTE | 2019-01-09 04:00 | NUR ---
Complete bed bath given x3 assist. Bed linens changed. Still combative.
[2019-01-09] MEDS: QUETIAPINE FUMARATE 25 MG TAB PO SCH ×4 (04:49→23:14)
[2019-01-09 05:36] LABS: BASOPHILS # (AUTO) 0.1 (0.0-0.1); BASOPHILS % 0.5 % (0.0-1.0); EOSINOPHILS # (AUTO) 0.3 (0.0-0.4); EOSINOPHILS % 3.2 % (0.0-6.0); HEMATOCRIT 39.7 % (38.2-49.6); HEMOGLOBIN 12.6 g/dL (14.0-18.0); LYMPHOCYTES # (AUTO) 1.4 (1.0-3.2); LYMPHOCYTES % 13.5 % (18.0-39.1); MEAN CORPUSCULAR HEMOGLOBIN 30.7 pg (28-32); MEAN CORPUSCULAR HGB CONC 31.7 g/dL (31-35); MEAN CORPUSCULAR VOLUME 96.8 fL (81-99); MONOCYTES # (AUTO) 1.4 (0.2-0.8); MONOCYTES % 13.6 % (4.4-11.3); NEUTROPHILS # (AUTO) 7.2 (2.1-6.9); NEUTROPHILS % 68.8 % (38.7-80.0); PLATELET COUNT 236 x10e3/uL (140-360); RED CELL DISTRIBUTION WIDTH 13.2 % (11.7-14.4)
[2019-01-09 05:46] LABS: ANION GAP 16.3 mmol/L (8-16); CALCIUM 9.2 mg/dL (8.4-10.2); CREATININE, SERUM 1.35 mg/dL (0.72-1.25); POTASSIUM 4.3 mmol/L (3.5-5.1)
[2019-01-09] MEDS: HYDROCODONE/APAP 5MG-325MG TAB PO PRN ×2 (07:52→20:25)
[2019-01-09] MEDS: CEFTRIAXONE SOD 1 GM/NS 50 ML 50 ML IV SCH ×2 (07:52→19:47)
[2019-01-09] MEDS: AZITHROMYCIN 500MG/NS 250 ML 250 ML IV SCH (08:00)
[2019-01-09] MEDS: AMLODIPINE BESYLATE 5 MG TAB PO SCH (08:01)
[2019-01-09] MEDS: BALSAM PERU/CASTOR OIL 60 GM OINT...G. TP SCH ×2 (08:01→20:24)
[2019-01-09] MEDS: GABAPENTIN 100 MG CAP PO SCH ×3 (08:01→20:24)
[2019-01-09] MEDS: LOSARTAN POTASSIUM 25 MG TAB PO SCH (08:01)
[2019-01-09] MEDS: WATER STERILE 10 ML VIAL INJ PRN ×2 (08:33→20:10)
[2019-01-09] MEDS: ZIPRASIDONE 20 MG VIAL IM PRN ×3 (08:33→22:12)
--- NOTE | 2019-01-09 11:05 | NUR ---
CALLED AND SPOKE TO HER CONCERNING SNF, [facility] IS NOT IN NETWORK WITH THEIR PLAN, [facility], WILL FORWARD CLINICALS AND [facility] TO [place]. COMPLETE RTF TO BE COMPLETED UPON ADMISSION.
--- NOTE | 2019-01-09 11:07 | NUR ---
SPOKE WITH ON PHONE EDUCATED ABOUT IMM SIGNED AND PUT ON CHART COPY LEFT WITH PATIENT GAVE CARD FOR QUESTIONS AND OR CONCERNS.
[2019-01-09] MEDS: ATORVASTATIN 10 MG TAB PO SCH (20:24)
[2019-01-09] MEDS ORDERED: ZIPRASIDONE 20 MG VIAL IM ONE (21:00)
[2019-01-10] MEDS: WATER STERILE 10 ML VIAL INJ PRN ×2 (04:23→23:54)
[2019-01-10] MEDS: ZIPRASIDONE 20 MG VIAL IM PRN ×2 (04:23→23:54)
[2019-01-10] MEDS: QUETIAPINE FUMARATE 25 MG TAB PO SCH ×5 (05:38→23:54)
[2019-01-10] MEDS: HYDROCODONE/APAP 5MG-325MG TAB PO PRN ×3 (05:45→20:16)
[2019-01-10] MEDS: CEFTRIAXONE SOD 1 GM/NS 50 ML 50 ML IV SCH ×2 (07:16→19:26)
[2019-01-10 08:00] VITALS: BP 142/68
[2019-01-10] MEDS: BALSAM PERU/CASTOR OIL 60 GM OINT...G. TP SCH ×2 (08:21→20:16)
[2019-01-10] MEDS: AZITHROMYCIN 500MG/NS 250 ML 250 ML IV SCH (08:21)
[2019-01-10] MEDS: GABAPENTIN 100 MG CAP PO SCH ×3 (09:00→20:16)
[2019-01-10] MEDS: AMLODIPINE BESYLATE 5 MG TAB PO SCH ×2 (09:00→13:15)
[2019-01-10] MEDS: LOSARTAN POTASSIUM 25 MG TAB PO SCH ×2 (09:00→13:15)
[2019-01-10 11:15] VITALS: BP 156/76
--- NOTE | 2019-01-10 13:18 | NUR ---
patient continues to remove telemetry and BP cuff, patient redirected but refuses to cooperate with monitoring, will continue to monitor
[2019-01-10 16:30] VITALS: BP 127/81
[2019-01-10 19:11] VITALS: BP 131/69
--- NOTE | 2019-01-10 20:06 | NUR ---
not appropriate at this time due to heavy sedation due to pt was combative/agitated and confused per nurse, f/u on saturday Addendum: 01/10/19 at 2007 by Leoncio Linares PTA Amended: Links added.
[2019-01-10] MEDS: ATORVASTATIN 10 MG TAB PO SCH (20:15)
[2019-01-10 21:20] VITALS: BP 131/69
[2019-01-10 23:39] VITALS: BP 142/72
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
[2019-01-11] MEDS: QUETIAPINE FUMARATE 25 MG TAB PO SCH ×3 (06:00→18:09)
[2019-01-11 07:30] VITALS: BP 163/65
--- NOTE | 2019-01-11 07:30 | NUR ---
PATIENT IN BED RESTING WITH HEAD OF BED ELEVATED. DENIED PAIN OR DISCOMFORT AT THIS TIME. VOIDED LARGE AMOUNT OF CLEAR YELLOW URINE TO DIAPER, CHANGED. REFUSED TELEMETRY WITH CONTINUOUS MONITORING. DRESSING DRY AND INTACT TO BUTTOCK. REPOSITIONED IN BED TO EAT BREAKFAST. BED IN LOWER POSITION, CALL LIGHT AT REACH, INSTRUCTED TO CALL FOR ASSISTANCE NEEDED.
[2019-01-11] MEDS: CEFTRIAXONE SOD 1 GM/NS 50 ML 50 ML IV SCH ×2 (08:00→19:35)
[2019-01-11] MEDS: AZITHROMYCIN 500MG/NS 250 ML 250 ML IV SCH (09:27)
[2019-01-11] MEDS: LOSARTAN POTASSIUM 25 MG TAB PO SCH (09:27)
[2019-01-11] MEDS: GABAPENTIN 100 MG CAP PO SCH ×3 (09:28→22:11)
[2019-01-11] MEDS: AMLODIPINE BESYLATE 5 MG TAB PO SCH (09:28)
[2019-01-11] MEDS: BALSAM PERU/CASTOR OIL 60 GM OINT...G. TP SCH ×2 (09:28→22:11)
[2019-01-11 11:30] VITALS: BP 144/66
--- NOTE | 2019-01-11 11:37 | NUR ---
TREATMENT DONE TO SACRUM ORDERED. PATIENT ASSISTED WITH DIAPER CHANGED. SITTING UP IN BED EATING LUNCH, NO DIFFICULTY SWALLOWING OBSERVED. BED IN LOWER POSITION, CALL LIGHT AT REACH.
--- NOTE | 2019-01-11 11:46 | NUR ---
DRESSING INTACT TO HEAD AND MULTIPLE BRUISES TO BODY. IN BED WITH CALL LIGHT AT REACH.
--- NOTE | 2019-01-11 15:35 | NUR ---
PATIENT ASSISTED WITH ADLS. IN BED RESTING WITH EYES CLOSED, NO DISTRESS NOTED. BED IN LOWER POSITION AND LOCKED. CALL LIGHT AT REACH.
[2019-01-11 16:35] VITALS: BP 111/59
--- NOTE | 2019-01-11 17:45 | NUR ---
PATIENT ATE 100% OF BREAKFAST AND DINNER, 50% OF LUNCH. IN BED WITH CALL LIGHT AT REACH.
[2019-01-11 20:00] VITALS: BP 127/58
[2019-01-11 21:00] VITALS: BP 127/58
[2019-01-11] MEDS: ATORVASTATIN 10 MG TAB PO SCH (22:11)
--- NOTE | 2019-01-11 22:45 | NUR ---
Bed bath given to the patient with help of Farhan Godfrey. Patient tolerated well. Will continue to monitor.
[2019-01-12] VITALS (8 sets, daily range): BP systolic 113–161; BP diastolic 56–69
[2019-01-12] MEDS: QUETIAPINE FUMARATE 25 MG TAB PO SCH ×5 (00:28→23:39)
[2019-01-12] MEDS: ZIPRASIDONE 20 MG VIAL IM PRN (01:30)
--- NOTE | 2019-01-12 07:00 | NUR ---
Pt received resting in bed. Alert and oriented to person alone. Oriented to staff and surroundings. Encouraged to press call oglesby if help needed. Smoking cessation education done. Pt verbalized understanding of teaching but needs constant reorientation. Bed alarm on. Will monitor
--- NOTE | 2019-01-12 07:02 | NUR ---
Report given to oncoming nurse.
[2019-01-12] MEDS: AMLODIPINE BESYLATE 5 MG TAB PO SCH (07:45)
[2019-01-12] MEDS: CEFTRIAXONE SOD 1 GM/NS 50 ML 50 ML IV SCH ×2 (07:45→20:00)
[2019-01-12] MEDS: LOSARTAN POTASSIUM 25 MG TAB PO SCH (07:45)
[2019-01-12] MEDS: BALSAM PERU/CASTOR OIL 60 GM OINT...G. TP SCH ×2 (07:45→21:00)
[2019-01-12] MEDS: GABAPENTIN 100 MG CAP PO SCH ×3 (07:45→21:00)
--- NOTE | 2019-01-12 07:48 | NUR ---
All meds given as ordered. Call oglesby within reach. Will monitor
[2019-01-12] MEDS: AZITHROMYCIN 500MG/NS 250 ML 250 ML IV SCH (09:00)
--- NOTE | 2019-01-12 10:24 | NUR ---
Pt transferred to [facility] room 199. Handoff given to ISAIAH
--- NOTE | 2019-01-12 10:45 | NUR ---
PATIENT RECEIVED FROM IMCU PER STRETCHER. ALERT AND VERBALLY RESPONSIVE. DENIED PAIN AT THIS TIME. TELEMETRY BOX IN PLACE, PATIENT STATED THAT HE DOES NOT WANT THE TELEMETRY AND WAS EDUCATED ON THE IMPORTANCE OF KEEPING IT, HE STATED THAT HE WILL KEEP IT FOR SOME TIME. DRESSING INTACT TO HEAD AND SACRUM. BED IN LOWER POSITION AND LOCKED. CALL LIGHT AT REACH. INSTRUCTED TO CALL FOR ASSISTANCE NEEDED.
--- NOTE | 2019-01-12 10:54 | NUR ---
FAXED UPDATES TO [facility]
--- NOTE | 2019-01-12 12:54 | NUR ---
PATIENT REMOVED TELEMETRY BOX BY HIMSELF. WHEN TRYING TO REAPPLIED IT PATIENT STATED "I DON'T WANT IT ". WILL CONTINUE TO MONITOR.
--- NOTE | 2019-01-12 15:24 | NUR ---
PATIENT NOTED WITH CONFUSION, REDIRECTED. TRYING TO GET OUT OF BED, STATING "I AM GOING HOME TO SLEEP IN MY BED". STAYED WITH PATIENT FOR CLOSE MONITORING. AT BED SIDE AT THIS TIME, NO MORE AGITATION. BED IN LOWER POSITION, CALL LIGHT AT REACH, BED ALARM ACTIVATED.
--- NOTE | 2019-01-12 17:59 | NUR ---
PATIENT SITTING UP IN BED TALKING TO , CONTINUE TO REFUSE TELEMETRY. CALL LIGHT AT REACH.
--- NOTE | 2019-01-12 20:00 | NUR ---
Received change of shift report from AM nurse. Walking rounds completed.
--- NOTE | 2019-01-12 20:00 | NUR ---
Patient AAOx1-2. Pt refuse to wear telemetry. Continue to pull box off. Pain denies pain at this time.IV intact to right FA 20G HL. Patient encourage fluids. SR up x2. Bed down lowest. Bed alarm on.
[2019-01-12] MEDS: ATORVASTATIN 10 MG TAB PO SCH (21:00)
[2019-01-12] MEDS ORDERED: SODIUM CHLORIDE 0.9% 50ML 50 ML ONE (21:07)
[2019-01-13] VITALS (8 sets, daily range): BP systolic 138–167; BP diastolic 65–72
--- NOTE | 2019-01-13 | NUR ---
Repositioned patient in bed. Oriented patient to place and time. Offered pt urinal. Continue monitor patient.
--- NOTE | 2019-01-13 03:33 | NUR ---
Patient resting quitly at this time. Continue monitor for changes in patient condition.
[2019-01-13] MEDS: QUETIAPINE FUMARATE 25 MG TAB PO SCH ×3 (05:17→22:17)
--- NOTE | 2019-01-13 07:11 | NUR ---
pt asleep resp even and unlaborea this time nodistress noted pt able to make needs known, when awaken, call light in reach.
--- NOTE | 2019-01-13 08:25 | NUR ---
O[facility] CALLED AND REQUESTED PT NOTES. FAXED AND GOT CONFIRMATION IT WAS RECEIVED.
[2019-01-13] MEDS: BALSAM PERU/CASTOR OIL 60 GM OINT...G. TP SCH ×2 (09:51→21:53)
[2019-01-13] MEDS: LOSARTAN POTASSIUM 25 MG TAB PO SCH (09:51)
[2019-01-13] MEDS: GABAPENTIN 100 MG CAP PO SCH ×3 (09:51→20:22)
[2019-01-13] MEDS: AMLODIPINE BESYLATE 5 MG TAB PO SCH (09:51)
--- NOTE | 2019-01-13 12:09 | NUR ---
pt resting at bedside and spoke with social media campaign manager.
--- NOTE | 2019-01-13 19:07 | NUR ---
WALKING ROUNDS PERFORMED, RECEIVED PT LAYING SEMI FOWLERS IN BED, AAOX2, RR EVEN AND NON-LABORED, ON ROOM AIR. NO S/SX OF DISTRESS NOTED. LEFT PATIENT LAYING SEMI FOWLERS IN BED, BED IN LOW LOCKED POSITION, SIDE RAILS UPX2, CALL LIGHT AND PHONE WITHIN REACH.
--- NOTE | 2019-01-13 19:43 | NUR ---
pt alert resp even and unlabored at this time no distress noted. pt able to make needs known, call light in reach.
--- NOTE | 2019-01-13 20:20 | NUR ---
APPLIED ALTERNATING PRESSURE PUMP TO MATTRESS.
[2019-01-13] MEDS: CEFTRIAXONE SOD 1 GM/NS 50 ML 50 ML IV SCH (20:22)
[2019-01-13] MEDS: ATORVASTATIN 10 MG TAB PO SCH (20:22)
[2019-01-14] VITALS: BP 135/63
[2019-01-14 04:00] VITALS: BP 131/60
[2019-01-14] MEDS: QUETIAPINE FUMARATE 25 MG TAB PO SCH (06:24)
--- NOTE | 2019-01-14 07:36 | NUR ---
PATIENT ASSISTED WITH PHONE CALL. IN BED TALKING ON THE PHONE. NO RESPIRATORY DISTRESS OBSERVED. DRESSING INTACT TO HEAD. BED IN LOWER POSITION, CALL LIGHT AT REACH.
[2019-01-14 07:40] VITALS: BP 120/56
[2019-01-14] MEDS: CEFTRIAXONE SOD 1 GM/NS 50 ML 50 ML IV SCH (07:45)
[2019-01-14 08:07] LABS: BASOPHILS # (AUTO) 0.1 (0.0-0.1); BASOPHILS % 0.5 % (0.0-1.0); EOSINOPHILS # (AUTO) 0.9 (0.0-0.4); EOSINOPHILS % 8.4 % (0.0-6.0); HEMATOCRIT 40.7 % (38.2-49.6); HEMOGLOBIN 13.4 g/dL (14.0-18.0); LYMPHOCYTES # (AUTO) 2.1 (1.0-3.2); LYMPHOCYTES % 18.9 % (18.0-39.1); MEAN CORPUSCULAR HGB CONC 32.9 g/dL (31-35); MEAN CORPUSCULAR VOLUME 94.2 fL (81-99); MONOCYTES # (AUTO) 1.2 (0.2-0.8); MONOCYTES % 10.7 % (4.4-11.3); NEUTROPHILS # (AUTO) 6.9 (2.1-6.9); PLATELET COUNT 288 x10e3/uL (140-360); RED BLOOD COUNT 4.32 x10e6/uL (4.3-5.7); RED CELL DISTRIBUTION WIDTH 12.5 % (11.7-14.4)
[2019-01-14 08:21] VITALS: BP 120/56
[2019-01-14 08:25] LABS: ANION GAP 15.3 mmol/L (8-16); CREATININE, SERUM 1.28 mg/dL (0.72-1.25); POTASSIUM 4.3 mmol/L (3.5-5.1)
[2019-01-14] MEDS: GABAPENTIN 100 MG CAP PO SCH ×2 (09:05→15:10)
[2019-01-14] MEDS: LOSARTAN POTASSIUM 25 MG TAB PO SCH (09:05)
[2019-01-14] MEDS: AMLODIPINE BESYLATE 5 MG TAB PO SCH (09:05)
[2019-01-14] MEDS: BALSAM PERU/CASTOR OIL 60 GM OINT...G. TP SCH (09:05)
[2019-01-14] MEDS ORDERED: QUETIAPINE FUMARATE 25 MG TAB PO PRN (09:15)
--- NOTE | 2019-01-14 11:45 | NUR ---
PATIENT IN BED TALKING TO FAMILY MEMBER VISITING, NO DISTRESS NOTED. BED IN LOWER POSITION AND LOCKED. CALL LIGHT AT REACH.
[2019-01-14 12:48] VITALS: BP 104/56
--- NOTE | 2019-01-14 12:52 | NUR ---
[facility] CALLED AND STATES THEY REC'D AUTH FOR INSURANCE TO TRANSFER HOWEVER THE DIRECTOR OF NURSES IS REFUSING TO TAKE THE PT BECAUSE OF HIGH PSYCH MED REQUIREMENTS FAXED UPDATE: SEROQUEL CHANGED FROM 12.5MG PO Q 8 TO 12.5MG Q 8 PRN NO GEODON REQUIREMENTS SINCE 01/12 AT 1 AM PT SITTING UP, TALKING ON PHONE, ORIENTED TO PERSON AND PLACE FAX: [phone] ASKED FOR RECONSIDERATION CM TO FOLLOW PT AND UPDATED ON DELAY
[2019-01-14] MEDS: HYDROCODONE/APAP 5MG-325MG TAB PO PRN (13:29)
--- NOTE | 2019-01-14 14:28 | NUR ---
TAVARES FROM [facility] CAME AND ASSESSED PT IN PERSON AGREES TO TAKE PT [facility] CALLING NOW TO DO PAPERWORK
--- NOTE | 2019-01-14 16:10 | NUR ---
PATIENT ASSISTED WITH DIAPER CHANGE, HAD A LARGE BM. REFUSED THE CREW LEADER/CONTROL ROOM OPERATOR TO BE REAPPLIED AFTER 3 ATTEMPTS. BED IN LOWER POSITION AND LOCKED, CALL LIGHT AT REACH, BED ALARM ACTIVATED.
[2019-01-14 16:33] VITALS: BP 108/56
--- NOTE | 2019-01-14 16:51 | NUR ---
PT ACCEPTED TO GO TO [facility] TODAY ROOM 34B DR JOHN[place]ON ACCEPTING PT'S AWARE AND AGREEABLE
--- NOTE | 2019-01-14 18:40 | NUR ---
PATIENT TRANSFERRED [facility]. REPORT CALLED AND GIVEN TO RECEIVING NURSE. PATIENT AWARE OF TRANSFER. IV TO RIGHT FOREARM REMOVED WITH TIP INTACT. ALL PERSONAL ITEMS TAKEN WITH PATIENT. LEFT UNIT ON STRETCHER PER AMBULANCE.
== END 2019-01-14 18:46 | DRG 193 ==
LOC: ER 15:46 → ERHOLD 19:47 → IMCU 21:21 → MED/SURG3 01-12 10:02
PROVIDERS: ADMIT Internal Medicine; ATTEND Internal Medicine
DX: J18.9 Pneumonia, unspecified organism (principal); G92 Toxic encephalopathy; J44.1 Chronic obstructive pulmonary disease with (acute) exacerbation; J44.0 Chronic obstructive pulmonary disease with (acute) lower respiratory infection; F23 Brief psychotic disorder; I10 Essential (primary) hypertension; G89.29 Other chronic pain; I73.9 Peripheral vascular disease, unspecified; G62.9 Polyneuropathy, unspecified; E78.5 Hyperlipidemia, unspecified; R00.0 Tachycardia, unspecified; L89.151 Pressure ulcer of sacral region, stage 1; L89.322 Pressure ulcer of left buttock, stage 2; Z89.611 Acquired absence of right leg above knee; Z79.02 Long term (current) use of antithrombotics/antiplatelets; Z86.73 Personal history of transient ischemic attack (TIA), and cerebral infarction without residual deficits
CPT/HCPCS: 36415; 70450; 71045; 71250; 72125; 80048; 80053; 80307; 81001; 82550; 82553; 82948; 83605; 83735; 84484; 85025; 85610; 85730; 87040; 87493; 93005; 97139; 99285; J0456; J0696; J2060; J3486; J7030